=== PATIENT | male | born 1995 | race Caucasian/White ===

== ENCOUNTER 2016-04-10 12:54 | Emergency (ER) | payer SELFPAY ==
[2016-04-10] MEDS ORDERED: IBUPROFEN 800 MG TABLET PO ONE (13:04)
--- NOTE | 2016-04-10 13:04 | ER Document Report ---
ED Medical Screen (RME) - General Chief Complaint: Abdominal Pain Stated Complaint: ABDOMINAL PAIN Time seen by provider: 13:02 Mode of Arrival: Ambulatory Information source: Patient Notes: 20-year-old male presents to ED for abdominal pain mid to lower bilaterally abdomen since Sunday about 3 any afternoon. Denies any nausea or vomiting, states he does have diarrhea 2 times today I have greeted and performed a rapid initial assessment of this patient. A comprehensive ED assessment and evaluation of the patient, analysis of test results and completion of medical decision making process will be conducted by an additional ED providers. TRAVEL OUTSIDE OF THE [place] IN LAST 30 DAYS: No - Related Data Allergies/Adverse Reactions: No Known Allergies Allergy (Verified 05/14/15 15:14) Past Medical History Pulmonary Medical History: Reports: Hx Pneumonia - Immunizations Immunizations up to date: Yes Hx Diphtheria, Pertussis, Tetanus Vaccination: Yes Physical Exam - Vital signs Vitals: Temp Pulse Resp BP Pulse Ox 98.2 F 72 16 140/87 H 99 04/10/16 13:00 04/10/16 13:00 04/10/16 13:00 04/10/16 13:00 04/10/16 13:00 Course - Vital Signs Vital signs: Temp Pulse Resp BP Pulse Ox 98.2 F 72 16 140/87 H 99 04/10/16 13:00 04/10/16 13:00 04/10/16 13:00 04/10/16 13:00 04/10/16 13:00
[2016-04-10 13:33] LABS: ABSOLUTE BASOPHILS # (AUTO) 0.1 10^3/uL (0.0-0.2); ABSOLUTE EOSINOPHILS # (AUTO) 0.3 10^3/uL (0.0-0.6); ABSOLUTE LYMPHOCYTES (AUTO) 1.8 10^3/uL (0.5-4.7); ABSOLUTE MONOCYTES (AUTO) 0.8 10^3/uL (0.1-1.4); ABSOLUTE NEUT (AUTO) 8.9 10^3/uL (1.7-8.2); BASOPHILS % (AUTO) 0.7 % (0-2); EOSINOPHILS % (AUTO) 2.2 % (0-6); HEMATOCRIT 43.8 % (37.9-51.0); HEMOGLOBIN 14.7 g/dL (13.5-17.0); HGB HCT DIFFERENCE 0.3; LYMPHOCYTES % (AUTO) 15.2 % (13-45); MEAN CORPUSCULAR HEMOGLOBIN 30.3 pg (27.0-33.4); MEAN CORPUSCULAR HGB CONC 33.6 g/dL (32.0-36.0); MEAN CORPUSCULAR VOLUME 90 fl (80-97); MONOCYTES % (AUTO) 6.7 % (3-13); RED BLOOD COUNT 4.85 10^6/uL (4.35-5.55); RED CELL DISTRIBUTION WIDTH 11.9 % (11.5-14.0); SEGMENTED NEUTROPHILS % (AUTO) 75.2 % (42-78); WHITE BLOOD COUNT 11.8 10^3/uL (4.0-10.5)
[2016-04-10 13:50] LABS: ALANINE AMINOTRANSFERASE 15 U/L (21-72); ALKALINE PHOSPHATASE 78 U/L (38-126); ANION GAP 14 (5-19); ASPARTATE AMINO TRANSFERASE 24 U/L (17-59); BILIRUBIN,TOTAL 0.7 mg/dL (0.2-1.3); BLOOD UREA NITROGEN 14 mg/dL (7-20); CALCIUM 10.2 mg/dL (8.4-10.2); CARBON DIOXIDE 30 mmol/L (22-30); CHLORIDE 99 mmol/L (98-107); CREATININE RESULT 1.28 mg/dL (0.52-1.25); GLUCOSE 103 mg/dL (75-110); LIPASE 69.6 U/L (23-300); POTASSIUM 4.7 mmol/L (3.6-5.0); SODIUM 142.5 mmol/L (137-145); TOTAL PROTEIN 7.9 g/dL (6.3-8.2)
[2016-04-10] MEDS ORDERED: NORMAL SALINE 1000 ML 1,000 ML IV ONE (15:10)
[2016-04-10 15:16] LABS: APPEARANCE,URINE CLEAR; BILIRUBIN,URINE NEGATIVE (NEGATIVE); GLUCOSE, URINE NEGATIVE (NEGATIVE); KETONES,URINE NEGATIVE (NEGATIVE); LEUKOCYTE ESTERASE,URINE NEGATIVE (NEGATIVE); NITRITE,URINE NEGATIVE (NEGATIVE); PROTEIN,URINE NEGATIVE (NEGATIVE); URINE SPECIFIC GRAVITY 1.027; UROBILINOGEN,URINE NEGATIVE mg/dL (<2.0)
--- NOTE | 2016-04-10 16:25 | ER Document Report ---
ED GI/ - General Chief Complaint: Diarrhea Stated Complaint: ABDOMINAL PAIN Mode of Arrival: Ambulatory Information source: Patient Notes: 20 y/o well appearing M presents to ED c/o intermittently persistent generalized abdominal pain over the last 3 days. Reports non-provoked achy type pain to mid abd. States is intermittent, non-radiating, and improved with ibuprofen. Reports has 2 episodes of loose stools today. Reports has had decreased appetite but has been able to eat mostly regular diet. Denies fever, n /v, dysuria, or blood in stools. Reports hx of IBS and similar symptoms in the past but states usually self-resolves. TRAVEL OUTSIDE OF THE [place] IN LAST 30 DAYS: No - HPI Patient complains to provider of: Abdominal pain Timing/Duration: Intermittent, Persistent Quality of pain: Achy Severity at maximum: Moderate Severity in ED: None Pain Level: 3 Similar symptoms previously: Yes Recently seen / treated by doctor: No - Related Data Allergies/Adverse Reactions: No Known Allergies Allergy (Verified 05/14/15 15:14) Past Medical History - General Information source: Patient - Social History Smoking Status: Never Smoker Frequency of alcohol use: None Drug Abuse: None Lives with: Family Family History: Reviewed & Not Pertinent, CAD - Parents had coronary artery disease in their 40s Patient has suicidal ideation: No Patient has homicidal ideation: No Pulmonary Medical History: Reports: Hx Pneumonia Renal/ Medical History: Denies: Hx Peritoneal Dialysis Surgical Hx: Negative Past Surgical History: Reports: Hx Orthopedic Surgery - Immunizations Immunizations up to date: Yes Hx Diphtheria, Pertussis, Tetanus Vaccination: Yes Review of Systems - Review of Systems Constitutional: No symptoms reported EENT: No symptoms reported Cardiovascular: No symptoms reported Respiratory: No symptoms reported Gastrointestinal: See HPI Genitourinary: No symptoms reported Male Genitourinary: No symptoms reported Musculoskeletal: No symptoms reported Skin: No symptoms reported Hematologic/Lymphatic: No symptoms reported Neurological/Psychological: No symptoms reported -: Yes All other systems reviewed and negative Physical Exam - Vital signs Vitals: Temp Pulse Resp BP Pulse Ox 98.2 F 72 16 140/87 H 99 04/10/16 13:00 04/10/16 13:00 04/10/16 13:00 04/10/16 13:00 04/10/16 13:00 Interpretation: Normal - General General appearance: Appears well, Alert In distress: None - HEENT Head: Normocephalic, Atraumatic Eyes: Normal Pupils: PERRL - Respiratory Respiratory status: No respiratory distress Chest status: Nontender Breath sounds: Normal Chest palpation: Normal - Cardiovascular Rhythm: Regular Heart sounds: Normal auscultation Murmur: No Pulses: Normal: Radial Normal capillary refill: Yes - Abdominal Inspection: Normal Distension: No distension Bowel sounds: Normal Tenderness: Nontender. No: Tender, McBurney's point, Pozo's sign, Guarding, Rebound, Other Organomegaly: No organomegaly - Back Back: Normal, Nontender - Extremities General upper extremity: Normal inspection, Nontender, Normal color, Normal ROM , Normal strength, Normal temperature. No: Tender, Edema General lower extremity: Normal inspection, Nontender, Normal color, Normal ROM , Normal strength, Normal temperature, Normal weight bearing. No: Tender, Edema - Neurological Neuro grossly intact: Yes Cognition: Normal Orientation: AAOx4 [place] Coma Scale Eye Opening: Spontaneous [place] Coma Scale Verbal: Oriented [place] Coma Scale Motor: Obeys Commands [place] Coma Scale Total: 15 Speech: Normal Motor strength normal: LUE, RUE, LLE, RLE Sensory: Normal - Psychological Associated symptoms: Normal affect, Normal mood - Skin Skin Temperature: Warm Skin Moisture: Dry Skin Color: Normal Course - Re-evaluation Re-evalutation: 04/10/16 16:29 Patient hemodynamically stable, in no distress, afebrile. No abdominal pain or tenderness during examination in the ED. Tolerating oral fluids without difficulty or vomiting. Labs unremarkable. No suggestion or emergent infectious, inflammatory, vascular etiology to pain. Patient appears stable for discharge and agrees with home care, follow-up, and ED return precautions. - Vital Signs Vital signs: Temp Pulse Resp BP Pulse Ox 98.7 F 66 18 129/76 H 98 04/10/16 17:07 04/10/16 17:07 04/10/16 17:07 04/10/16 17:07 04/10/16 17:07 - Laboratory Result Diagrams: 04/10/16 13:15 04/10/16 13:15 Laboratory results interpreted by me: 04/10/16 04/10/16 13:15 13:15 WBC 11.8 H Absolute Neutrophils 8.9 H Creatinine 1.28 H ALT 15 L Discharge - Discharge Clinical Impression: Abdominal pain Qualifiers: Abdominal location: generalized Qualified Code(s): R10.84 - Generalized abdominal pain Condition: Stable Disposition: HOME, SELF-CARE Instructions: Abdominal Pain ([facility]), Diarrhea, Nonspecific ([facility]), Observation for Appendicitis ([facility]) Additional Instructions: Drink plenty of fluids, at least 2 to 3 liters of water per day. Eat plenty of whole grains, fruits, and vegetables and less processed foods and meats. Follow-up with your primary care provider and GI this week. Return to the Emergency Department for any worsening symptoms or concerns. Forms: Elevated Blood Pressure Referrals: GARIMA GARCIA MD [ACTIVE STAFF] - Follow up tomorrow
[2016-04-10 17:10] VITALS: BP 129/76
== END 2016-04-10 17:10 | disposition home or self-care (01) ==
LOC: ER 12:54
DX: R10.84 Generalized abdominal pain (principal); R63.0 Anorexia; R19.4 Change in bowel habit
CPT/HCPCS: 36415; 80053; 81001; 83690; 85025; 99284